=== PATIENT | male | born 1960 | race Caucasian/White ===

== ENCOUNTER 2022-11-22 06:02 | Day surgery (SDC) | payer BC ==
[2022-11-21 13:02] LABS: BASOPHILS % (AUTO) 0.6 % (0-1); EOSINOPHILS # (AUTO) 0.2 X10'3 (0-0.9); EOSINOPHILS % (AUTO) 2.7 % (0-6); HEMATOCRIT 47.1 % (42.0-52.0); HEMOGLOBIN 15.7 g/dl (14.0-17.9); LYMPHOCYTES # (AUTO) 1.2 X10'3 (1.1-4.8); LYMPHOCYTES % (AUTO) 15.8 % (21-51); MEAN CORPUSCULAR HEMOGLOBIN 31.8 PG (27.0-31.0); MEAN CORPUSCULAR HGB CONC 33.5 g/dL (33.0-36.5); MEAN CORPUSCULAR VOLUME 95.2 FL (78-98); MEAN PLATELET VOLUME 7.9 FL (7.4-10.4); MONOCYTES # (AUTO) 0.7 X10'3 (0-0.9); MONOCYTES % (AUTO) 8.5 % (2-12); NEUTROPHILS # (AUTO) 5.7 X10'3 (1.8-7.7); NEUTROPHILS % (AUTO) 72.4 % (42-75); PLATELET COUNT 202 X10'3 (140-440); RED BLOOD COUNT 4.95 X10'6 (4.70-6.10); WHITE BLOOD COUNT 7.9 X10'3 (4.5-11.0)
[2022-11-21 13:09] LABS: ANION GAP 8 (8-16); BLOOD UREA NITROGEN 22 MG/DL (7-18); BUN/CREATININE RATIO 18.8 (5.4-32.0); CALCIUM 8.6 MG/DL (8.5-10.1); CHLORIDE 104 MMOL/L (99-107); CREATININE 1.17 MG/DL (0.60-1.10); GLUCOSE 88 MG/DL (70-104); POTASSIUM 4.4 MMOL/L (3.5-5.1); SODIUM 138 MMOL/L (135-145); TOTAL CARBON DIOXIDE 26.4 MMOL/L (24-32); eGFR 63 ML/MIN
[2022-11-21 14:16] LABS: APTT 26 SECONDS (22-32)
[~2022-11-22] VITALS: Ht 180.3 cm; Wt 106.3 kg
[2022-11-22] VITALS (9 sets, daily range): BP systolic 100–117; BP diastolic 66–84
[2022-11-22] MEDS ORDERED: LORazepam 0.5 MG tablet PO PRN (06:20)
[2022-11-22] MEDS ORDERED: acetylcysteine 200 MG/ml 4ml vial PO PRN (06:20)
[2022-11-22] MEDS ORDERED: LIDOcaine/PRILOcaine 5gm cream TP ONE (06:20)
[2022-11-22] MEDS ORDERED: diphenhydrAMINE 25mg capsule PO PRN (06:20)
[2022-11-22] MEDS ORDERED: AMIO200T62 PO (06:33)
[2022-11-22] MEDS ORDERED: LISI10TA27 PO (06:33)
[2022-11-22] MEDS ORDERED: CARV25TA2 PO (06:33)
[2022-11-22] MEDS ORDERED: ASPI-1071 PO (06:33)
[2022-11-22] MEDS ORDERED: ATOR80TA PO (06:33)
[2022-11-22] MEDS: normal saline 1,000 ML IV SCH ×2 (07:16→09:43)
[2022-11-22] MEDS ORDERED: sodium bicarbonate (8.4%) inj. 150 ML in dextrose 5%-water 1,000 ML IV ONE (07:20)
[2022-11-22] MEDS ORDERED: sodium bicarbonate (8.4%) inj. 150 ML in dextrose 5%-water 850 ML IV ONE (07:25)
[2022-11-22] MEDS ORDERED: nitroGLYCERIN-Tridil 50MG/D5W 250 ML IV ONE (07:32)
[2022-11-22] MEDS ORDERED: verapamil 2.5 mg/ml inj IV ONE (07:32)
[2022-11-22] MEDS ORDERED: iohexol 350 MG/ML 50ML vial IV ONE (07:33)
[2022-11-22] MEDS ORDERED: iohexol 350MG/ML 100ml bottle IV ONE (07:33)
[2022-11-22] MEDS ORDERED: heparin 1,000unit/ml 10ml vial 10 ML ONE (07:33)
[2022-11-22] MEDS ORDERED: midazolam 1 mg/ML 2ml injection ONE (07:33)
[2022-11-22] MEDS ORDERED: fentaNYL/PF 50MCG/1 ML 2ML syringe ONE (07:33)
[2022-11-22] MEDS ORDERED: LIDOcaine 1% (10mg/ml) 2ml vial ONE (07:33)
[2022-11-22 09:09] LABS: ISTAT HGB ART 14.6 g/dl (14.0-17.9); ISTAT Hct ART 43 %PCV (42-52); ISTAT O2 SATURATION ARTERIAL 94 % (95-98); ISTAT SOURCE ART
[2022-11-22 12:23] LABS: ISTAT Hct MIX 43 %PCV (42-52); ISTAT O2 SATURATION MIX VENOUS 66 % (60-80); ISTAT SOURCE VEN
== END 2022-11-22 13:05 | disposition home or self-care (01) ==
LOC: SSTAY O 06:02
PROVIDERS: ATTEND Internal Medicine Cardiovascular Disease
DX: R06.02 Shortness of breath (principal); R53.83 Other fatigue; I25.10 Atherosclerotic heart disease of native coronary artery without angina pectoris; I34.0 Nonrheumatic mitral (valve) insufficiency; I11.0 Hypertensive heart disease with heart failure; I50.9 Heart failure, unspecified; I42.0 Dilated cardiomyopathy; I48.0 Paroxysmal atrial fibrillation; E78.5 Hyperlipidemia, unspecified; Z95.810 Presence of automatic (implantable) cardiac defibrillator; Z79.82 Long term (current) use of aspirin; Z79.899 Other long term (current) drug therapy; Z96.649 Presence of unspecified artificial hip joint; Z98.890 Other specified postprocedural states; Z72.89 Other problems related to lifestyle
CPT/HCPCS: 36415; 76937; 80048; 82803; 85014; 85025; 85610; 85730; 93005; 93460; 99152; 99153; C1751; C1769; C1894; J1644; J2250; J3010; J3490; J7030; J7070; Q0163; Q9967; A6258; A6449; C1725

== ENCOUNTER 2023-09-25 17:27 | Inpatient (IN) | payer BC ==
[~2023-09-25] VITALS: Ht 180.3 cm; Wt 108.1 kg
[~2023-09-25 17:27] MED LIST: AMIO200T72 PO; ASPI-1071 PO; ATOR80TA PO; CARV25TA2 PO; LISI10TA27 PO
[2023-09-25 17:33] VITALS: TEMP 98.4
[2023-09-25] MEDS ORDERED: nitroGLYCERIN 1gm ointment UD TP ONE (17:55)
[2023-09-25 18:08] LABS: BASOPHILS # (AUTO) 0.1 X10'3 (0-0.2); BASOPHILS % (AUTO) 0.9 % (0-1); EOSINOPHILS # (AUTO) 0.1 X10'3 (0-0.9); EOSINOPHILS % (AUTO) 1.2 % (0-6); HEMATOCRIT 48.5 % (42.0-52.0); HEMOGLOBIN 16.6 g/dl (14.0-17.9); LYMPHOCYTES # (AUTO) 1.3 X10'3 (1.1-4.8); MEAN CORPUSCULAR HEMOGLOBIN 32.2 PG (27.0-31.0); MEAN CORPUSCULAR HGB CONC 34.1 g/dL (33.0-36.5); MEAN CORPUSCULAR VOLUME 94.2 FL (78-98); MEAN PLATELET VOLUME 7.5 FL (7.4-10.4); MONOCYTES # (AUTO) 0.7 X10'3 (0-0.9); MONOCYTES % (AUTO) 6.3 % (2-12); NEUTROPHILS # (AUTO) 8.3 X10'3 (1.8-7.7); NEUTROPHILS % (AUTO) 79.6 % (42-75); PLATELET COUNT 227 X10'3 (140-440); RED BLOOD COUNT 5.15 X10'6 (4.70-6.10); RED CELL DISTRIBUTION WIDTH 14.7 % (11.5-14.5); WHITE BLOOD COUNT 10.5 X10'3 (4.5-11.0)
[2023-09-25 18:15] LABS: APTT 26 SECONDS (22-32); PROTHROMBIN TIME 10.3 SECONDS (9.0-12.0)
[2023-09-25 18:17] LABS: ALANINE AMINOTRANSFERASE 44 U/L (12-78); ALBUMIN 4.1 G/DL (3.4-5.0); ALBUMIN/GLOBULIN RATIO 1.3 (1.1-1.5); ALKALINE PHOSPHATASE 65 IU/L (46-116); ANION GAP 10 (8-16); ASPARTATE AMINO TRANSFERASE 27 U/L (10-37); BILIRUBIN,TOTAL 1.5 MG/DL (0.1-1.0); BLOOD UREA NITROGEN 21 MG/DL (7-18); BUN/CREATININE RATIO 19.1 (10.0-20.0); CALCIUM 9.3 MG/DL (8.5-10.1); CHLORIDE 100 MMOL/L (99-107); GLUCOSE 86 MG/DL (70-104); POTASSIUM 3.8 MMOL/L (3.5-5.1); SODIUM 136 MMOL/L (135-145); TOTAL CARBON DIOXIDE 26.1 MMOL/L (24-32); TOTAL PROTEIN 7.2 G/DL (6.4-8.2); eCRCL 73 ML/MIN; eGFR 68 ML/MIN
[2023-09-25 18:25] LABS: PRO BRAIN NATRIURETIC PEPTIDE 369 PG/ML (0-125)
--- NOTE | 2023-09-25 19:28 | NUR ---
Pacemaker interigation completed.
[2023-09-25] MEDS ORDERED: ondansetron 4mg rapidly disintigrating tab PO PRN (20:35)
[2023-09-25] MEDS ORDERED: magnesium hydroxide 30ml (MOM) UD suspension PO PRN (20:35)
[2023-09-25] MEDS ORDERED: bisacodyl 10mg suppository rectal RC PRN (20:35)
[2023-09-25] MEDS ORDERED: HYDROcodone/acetaminophen 5mg/325mg tablet PO PRN (20:35)
[2023-09-25] MEDS ORDERED: ondansetron/PF 4mg/2ml inj IV PRN (20:35)
[2023-09-25] MEDS ORDERED: mag hydrox/Alum hydrox/simeth 30ml oral suspension PO PRN (20:35)
[2023-09-25] MEDS ORDERED: diphenhydrAMINE 50 mg/ml inj IV PRN (20:35)
[2023-09-25] MEDS ORDERED: HYDROcodone/acetaminophen 10/325mg tab PO PRN (20:35)
[2023-09-25] MEDS ORDERED: acetaminophen 325mg tablet PO PRN ×2 (20:35)
[2023-09-25] MEDS ORDERED: morphine 2 MG/ML inj. syringe IV PRN ×2 (20:35)
[2023-09-25] MEDS ORDERED: diphenhydrAMINE 25mg capsule PO PRN (20:35)
[2023-09-25] MEDS ORDERED: metoprolol tartrate 1mg/ml inj IV PRN (20:40)
[2023-09-25] MEDS ORDERED: aminophylline 250mg/10ml inj. IV PRN (20:40)
[2023-09-25] MEDS ORDERED: regadenoson 0.4mg/5ml syringe IV PRN (20:40)
[2023-09-25] MEDS ORDERED: nitroGLYCERIN 0.4mg SUBLingual tab SL PRN (20:40)
[2023-09-25 20:55] LABS: HEMOGLOBIN A1C 5.2 % (4.5-6.2)
[2023-09-25] MEDS ORDERED: temazepam 15mg capsule PO PRN (21:00)
[2023-09-25 21:08] LABS: D-DIMER 0.56 MG/L FEU (0-0.50)
[2023-09-25] MEDS: potassium cl 20mEq in 1/2 NS 1,000 ML IV SCH (21:31)
[2023-09-25] MEDS ORDERED: CARV6.2555 PO (21:42)
[2023-09-25] MEDS ORDERED: SPIR25TA5 PO (21:42)
[2023-09-25 21:48] LABS: CREATINE KINASE 142 U/L (39-308); LIPASE 24 U/L (16-77)
--- NOTE | 2023-09-25 21:54 | NUR ---
PER MD GREGORY; HANG 20MEQ K REGARDLESS OF K OF 3.8.
[2023-09-26] VITALS (10 sets, daily range): BP systolic 118–134; BP diastolic 70–89; PULSE 82–98; RESP 14–16; O2SAT 97–99
[2023-09-26 02:00] LABS: BILIRUBIN,URINE NEGATIVE (Neg); CLARITY,URINE CLEAR (Clear); COLOR,URINE YELLOW (Yellow); GLUCOSE, URINE NEGATIVE (Neg); KETONES,URINE NEGATIVE (Neg); LEUKOCYTE ESTERASE ,URINE NEGATIVE (Neg); NITRITES, URINE NEGATIVE (Neg); OCCULT BLOOD,URINE NEGATIVE (Neg); PROTEIN,URINE NEGATIVE (Neg); UROBILINOGEN,URINE 0.2 E.U/dL (0.2-1.0)
[2023-09-26 02:07] LABS: UA COLLECTION TYPE CLN CATCH MIDSTREAM
[2023-09-26] MEDS: heparin, porcine 5000 units/ml vial SQ SCH ×3 (02:32→16:00)
[2023-09-26] MEDS: potassium cl 20mEq in 1/2 NS 1,000 ML IV SCH ×2 (06:39→16:35)
[2023-09-26] MEDS ORDERED: FURO20TA4 (06:51)
[2023-09-26] MEDS ORDERED: pantoprazole 40mg Tablet.DR PO SCH (07:30)
[2023-09-26] MEDS ORDERED: nitroGLYCERIN 0.2mg/hour patch TD SCH (08:00)
[2023-09-26] MEDS ORDERED: docusate sod 100mg capsule PO SCH (08:00)
--- NOTE | 2023-09-26 08:30 | NUR ---
PT OFF FLOOR FOR STRESS REST
--- NOTE | 2023-09-26 11:00 | NUR ---
Pt returned to the floor, assumed care of patient. pt has no complaints, speaking in full sentences, denies pain. at bedside.
[2023-09-26 11:38] LABS: BASOPHILS % (AUTO) 0.3 % (0-1); EOSINOPHILS # (AUTO) 0.1 X10'3 (0-0.9); EOSINOPHILS % (AUTO) 0.4 % (0-6); HEMATOCRIT 45.4 % (42.0-52.0); HEMOGLOBIN 15.6 g/dl (14.0-17.9); LYMPHOCYTES # (AUTO) 1.2 X10'3 (1.1-4.8); LYMPHOCYTES % (AUTO) 11.1 % (21-51); MEAN CORPUSCULAR HEMOGLOBIN 32.4 PG (27.0-31.0); MEAN CORPUSCULAR HGB CONC 34.3 g/dL (33.0-36.5); MEAN CORPUSCULAR VOLUME 94.3 FL (78-98); MEAN PLATELET VOLUME 7.2 FL (7.4-10.4); MONOCYTES # (AUTO) 0.6 X10'3 (0-0.9); MONOCYTES % (AUTO) 5.2 % (2-12); NEUTROPHILS # (AUTO) 9.3 X10'3 (1.8-7.7); PLATELET COUNT 229 X10'3 (140-440); RED BLOOD COUNT 4.81 X10'6 (4.70-6.10); RED CELL DISTRIBUTION WIDTH 14.5 % (11.5-14.5); WHITE BLOOD COUNT 11.2 X10'3 (4.5-11.0)
--- NOTE | 2023-09-26 11:40 | NUR ---
at bedside, okay for patient to eat regular diet. to bring pt food. Provided water. Pt ambulated to restroom with steady gate.
[2023-09-26 11:58] LABS: CHOL/HDL RATIO 2.2 (0.00-4.99); CHOLESTEROL 143 MG/DL (0-200); HDL CHOLESTEROL 65 MG/DL (35-60); LDL CHOLESTEROL 68 MG/DL (50-100); TRIGLYCERIDES 32 MG/DL (20-135)
[2023-09-26 12:01] LABS: ALANINE AMINOTRANSFERASE 40 U/L (12-78); ALBUMIN 3.7 G/DL (3.4-5.0); ALBUMIN/GLOBULIN RATIO 1.2 (1.1-1.5); ALKALINE PHOSPHATASE 58 IU/L (46-116); ANION GAP 9 (8-16); ASPARTATE AMINO TRANSFERASE 25 U/L (10-37); BILIRUBIN,TOTAL 2.2 MG/DL (0.1-1.0); BLOOD UREA NITROGEN 14 MG/DL (7-18); BUN/CREATININE RATIO 13.1 (10.0-20.0); CALCIUM 8.7 MG/DL (8.5-10.1); CHLORIDE 102 MMOL/L (99-107); CHOL/HDL RATIO 2.2 (0.00-4.99); CHOLESTEROL 140 MG/DL (0-200); CREATININE 1.07 MG/DL (0.60-1.10); GLUCOSE 130 MG/DL (70-104); HDL CHOLESTEROL 65 MG/DL (35-60); LDL CHOLESTEROL 68 MG/DL (50-100); POTASSIUM 3.6 MMOL/L (3.5-5.1); SODIUM 136 MMOL/L (135-145); TOTAL CARBON DIOXIDE 24.6 MMOL/L (24-32); TOTAL PROTEIN 6.7 G/DL (6.4-8.2); TRIGLYCERIDES 31 MG/DL (20-135); eCRCL 75 ML/MIN; eGFR 70 ML/MIN
--- NOTE | 2023-09-26 12:43 | NUR ---
Pt ambulated with a steady gate to the restroom, denies pain or SOB.
--- NOTE | 2023-09-26 14:01 | NUR ---
Pt alert, able to make needs known. Sitting at bedside with . Denies pain or complaints.
[2023-09-26] MEDS ORDERED: ASPI-10 PO (15:55)
[2023-09-26] MEDS ORDERED: EMPA10TA PO (15:55)
[2023-09-26] MEDS ORDERED: iohexol 300mg/ml 100ml inj. ONE (16:22)
--- NOTE | 2023-09-26 16:36 | NUR ---
REC CALL FROM DR RAHMAN, THAT PT NEEDS A NEGATIVE ABD CT PRIOR TO DISCHARGE. IF REFUSED, PT CAN SIGN OUT AMA
--- NOTE | 2023-09-26 18:11 | NUR ---
Dr Medina called, pt reday to [facility].
[2023-09-26] MEDS ORDERED: carvedilol 6.25mg tablet PO SCH (20:00)
[2023-09-26] MEDS ORDERED: lisinopril 10 MG tablet PO SCH (20:00)
[2023-09-26] MEDS ORDERED: atorvastatin 20mg tablet PO SCH (21:00)
[2023-09-27] MEDS ORDERED: amiodarone 200mg tablet PO SCH (08:00)
[2023-09-27] MEDS ORDERED: aspirin 81mg, enteric-coated 1 TAB TABLET.DR PO SCH (08:00)
[2023-09-27] MEDS ORDERED: EMPAGLIFLOZIN 10 MG TABLET PO SCH (08:00)
[2023-09-27] MEDS ORDERED: spironolactone 25 MG tablet PO SCH (08:00)
[2023-09-27] MEDS ORDERED: aspirin 325mg tablet PO SCH (08:30)
== END 2023-09-26 18:45 | disposition home or self-care (01) | DRG 313 ==
LOC: ER 17:28 → ED HOLD 20:39
PROVIDERS: ADMIT Family Medicine; ATTEND Internal Medicine
PROC: 4A02XM4 Measurement of Cardiac Total Activity, External Approach (ICD-10-PCS; principal; 2023-09-26)
PROC: 3E033HZ Introduction of Radioactive Substance into Peripheral Vein, Percutaneous Approach (ICD-10-PCS; 2023-09-26)
PROC: BW211ZZ Computerized Tomography (CT Scan) of Abdomen and Pelvis using Low Osmolar Contrast (ICD-10-PCS; 2023-09-26)
DX: R07.89 Other chest pain (principal); I47.10 Supraventricular tachycardia, unspecified; I42.9 Cardiomyopathy, unspecified; I25.110 Atherosclerotic heart disease of native coronary artery with unstable angina pectoris; E78.5 Hyperlipidemia, unspecified; E66.9 Obesity, unspecified; Z68.33 Body mass index [BMI] 33.0-33.9, adult; I50.9 Heart failure, unspecified; I48.0 Paroxysmal atrial fibrillation; I11.0 Hypertensive heart disease with heart failure; Z86.74 Personal history of sudden cardiac arrest; Z95.2 Presence of prosthetic heart valve; Z95.810 Presence of automatic (implantable) cardiac defibrillator
CPT/HCPCS: 36415; 71045; 74177; 78452; 80053; 80061; 81003; 82550; 83036; 83690; 83735; 83880; 84100; 84443; 84484; 85025; 85379; 85610; 85730; 93017; 99285; A9500; G0378; J1644; J2785; J3480; J3490; Q9967